=== PATIENT | female | born 2005 | race Caucasian/White ===

== ENCOUNTER 2024-11-21 14:08 | Emergency (ER) | payer MEDICAID ==
[~2024-11-21] VITALS: Ht 175.3 cm; Wt 79.4 kg
[2024-11-21] MEDS ORDERED: Acetaminophen 500 MG Tab PO ONE (14:40)
[2024-11-21] MEDS ORDERED: Ibuprofen 600 MG Tab PO ONE (14:40)
[2024-11-21] MEDS ORDERED: IBUP600 PO ×2 (14:41→14:44)
[2024-11-21] MEDS ORDERED: ACET500 PO ×2 (14:41→14:44)
== END 2024-11-21 14:46 | disposition home or self-care (01) ==
LOC: ER 14:08
DX: J06.9 Acute upper respiratory infection, unspecified (principal); Z88.0 Allergy status to penicillin; F17.290 Nicotine dependence, other tobacco product, uncomplicated
CPT/HCPCS: 99282